=== PATIENT | female | born 2005 | race Caucasian/White ===

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

== ENCOUNTER 2023-09-22 11:44 | Emergency (ER) | payer OTHER ==
[~2023-09-22] VITALS: Ht 162.6 cm; Wt 63.5 kg
[~2023-09-22 11:44] MED LIST changes: +Oxybutynin Chlor5 M1 PO
[2023-09-22 12:04] VITALS: BP 130/82
== END 2023-09-22 12:30 ==
LOC: ER 11:44
DX: Z02.89 Encounter for other administrative examinations (principal); F15.10 Other stimulant abuse, uncomplicated; F41.9 Anxiety disorder, unspecified; F20.9 Schizophrenia, unspecified; F31.9 Bipolar disorder, unspecified; F17.200 Nicotine dependence, unspecified, uncomplicated; Z79.899 Other long term (current) drug therapy; Z88.5 Allergy status to narcotic agent; Z91.148 Patient's other noncompliance with medication regimen for other reason
CPT/HCPCS: 96372; 99282-25; J2060